=== PATIENT | female | born 1990 | race Caucasian/White ===

== ENCOUNTER 2021-02-17 15:32 | Outpatient (CLI) | payer BC, SELFPAY | END 2021-02-17 19:36 | disposition home or self-care (01) | LOC: ANHOBOP 16:35 → ANHLDR 16:36 | PROVIDERS: PCP Physician Assistant; Visit Provider Obstetrics & Gynecology | DX: O42.90 Premature rupture of membranes, unspecified as to length of time between rupture and onset of labor, unspecified weeks of gestation (principal); Z3A.00 Weeks of gestation of pregnancy not specified | CPT/HCPCS: 59025; 99199 ==

== ENCOUNTER 2021-02-25 03:04 | Observation (INO) | payer BC, SELFPAY ==
[2021-02-25 04:50] VITALS: BMI 28.1
--- NOTE | 2021-02-25 05:13 | OBADM ---
This patient, Maritza Osborne, admitted to the OB room Labor/Delivery/Recovery 106 for observation. Patient/family oriented to hospital policies and general routines including ID bracelet, bed and alarms, visiting hours, pain management, procedures, bathroom and other care routines, personal items, smoking policy, room service/diet, and visiting hours. Patient/Family are encouraged to report perceived risks to care and to ask questions if they do not understand what they are told or what they should do.
--- NOTE | 2021-02-25 12:29 | PM.OBTRLD ---
OB - Triage/Final Diagnosis Visit Information Comments/Additional reasons for admission: I have assessed the risk for this patient, Maritza Osborne, and determined that she would benefit from observation care. Final Diagnosis (1) False labor: Code(s): O47.9 - False labor, unspecified Status: Acute
== END 2021-02-25 05:25 | disposition home or self-care (01) ==
PROVIDERS: Admitting Provider Obstetrics & Gynecology; PCP Physician Assistant; Visit Provider Obstetrics & Gynecology
DX: O47.9 False labor, unspecified (principal); Z3A.00 Weeks of gestation of pregnancy not specified
CPT/HCPCS: G0378; G0379

== ENCOUNTER 2021-02-25 12:35 | Inpatient (IN) | payer BC, SELFPAY ==
[2021-02-25] VITALS (80 sets, daily range): BP systolic 86–133; BP diastolic 50–81; PULSE 76–139; RESP 14–20; TEMP 36.6–37.3; O2SAT 99–100; BMI 28.3
--- NOTE | 2021-02-25 12:35 | LDADM ---
This patient, Maritza Osborne, was admitted to Labor/Delivery/Recovery 106 on 02/25/21 at 12:35. Plans for labor, pain management and were discussed with patient. Patient/family oriented to hospital policies and general routines including ID bracelet, bed and alarms, visiting hours, pain management, procedures, bathroom and other care routines, personal items, smoking policy, room service/diet and guest tray routines, infant security routines, and visiting hours. Patient/Family are encouraged to report perceived risks to care and to ask questions if they do not understand what they are told or what they should do. See OBIX for further documentation.
[2021-02-25] MEDS: LACTATED RINGERS 1,000 ML 999 ML IV CONT (13:25)
[2021-02-25 13:40] LABS: Basophils Absolute Auto 0.1 K/mm3 (0.0-0.1); Basophils Percent Auto 0.4 % (0.2-1.2); Eosinophils Percent Auto 0.2 % (0-4.4); Hematocrit 36.5 % (37.0-47.0); Hemoglobin 12.2 g/dL (12.0-15.0); Immature Granulocyte Absolute 0.16 K/mm3 (0.00-0.031); Immature Granulocyte Percent A 0.9 % (0-0.5); Lymphocytes Absolute Auto 1.41 K/mm3 (0.9-3.2); Lymphocytes Percent Auto 8.4 % (18.3-44.2); Mean Corpuscular HGB Conc 33.4 g/dl (32-36); Mean Corpuscular Hemoglobin 29.2 pg (26-34); Mean Corpuscular Volume 87.3 fl (80-100); Mean Platelet Volume 9.3 fl (7.4-10.4); Neutrophils Absolute Auto 14.2 K/mm3 (1.3-6.7); Neutrophils Percent Auto 84.1 % (45.5-73.1); Platelet Count Result 243 k/mm3 (150-375); Red Blood Count 4.18 M/mm3 (4.2-5.4); Red Cell Distribution Width 12.7 % (11.5-14.5); White Blood Count 16.9 K/mm3 (4.5-10.0)
[2021-02-25] MEDS: LACTATED RINGERS 1,000 ML 125 ML IV CONT (14:26)
--- NOTE | 2021-02-25 14:52 | WPDANESEPP ---
Anes - Eval Pre Procedure Procedure: labor epidural Date/Time: 02/25/21 14:52 Surgeon: Hollis Preop Diagnosis: Pain During Labor Pre Op Diagnosis: labor Patient Data Age: 30 Gender: F Height: 1.64 m Weight: 76 kg Last Vital Signs Temp 98 F 02/25/21 13:31 Pulse 110 H 02/25/21 14:51 Resp 20 02/25/21 12:54 BP 113/68 02/25/21 14:51 Pulse Ox 100 02/25/21 14:44 Allergies Allergy/AdvReac Type Severity Reaction Status Date / Time dicyclomine [From Bentyl] Allergy Blister Verified 02/12/21 15:45 fexofenadine [From Mariangel] Allergy Blister Verified 02/12/21 15:45 ibuprofen [From Advil] Allergy Blister Verified 02/12/21 15:45 Sulfa (Sulfonamide Allergy Rash Verified 02/12/21 15:45 Antibiotics) sulfamethoxazole Allergy Rash Verified 02/12/21 15:45 [From Septra] trimethoprim [From Septra] Allergy Rash Verified 02/12/21 15:45 Home Medications Medication Instructions Recorded Confirmed Type Complete [place] cap PO 02/12/21 History docusate sodium [Colace] 100 mg PO DAILY 02/12/21 02/12/21 History escitalopram oxalate [Lexapro] 5 mg PO DAILY 02/12/21 02/12/21 History ferrous sulfate 325 mg PO BID 02/12/21 02/12/21 History prenat.vits,anisa,rlz-vnjb-acmxd 1 tablet PO DAILY 02/12/21 02/12/21 History Laboratory Tests 02/25/21 02/25/21 13:28 13:28 WBC 16.9 K/mm3 H K/mm3 (4.5-10.0) RBC 4.18 M/mm3 L M/mm3 (4.2-5.4) Hgb 12.2 g/dL g/dL (12.0-15.0) Hct 36.5 % L % (37.0-47.0) MCV 87.3 fl fl (80-100) MCH 29.2 pg pg (26-34) MCHC 33.4 g/dl g/dl (32-36) RDW 12.7 % % (11.5-14.5) Plt Count 243 k/mm3 k/mm3 (150-375) MPV 9.3 fl fl (7.4-10.4) Immature Gran % (Auto) 0.9 % H % (0-0.5) Neut % (Auto) 84.1 % H % (45.5-73.1) Lymph % (Auto) 8.4 % L % (18.3-44.2) [place] % (Auto) 6.0 % % (2.6-8.5) Eos % (Auto) 0.2 % % (0-4.4) Baso % (Auto) 0.4 % % (0.2-1.2) Lymph # (Auto) 1.41 K/mm3 K/mm3 (0.9-3.2) [place] # (Auto) 1.0 K/mm3 H K/mm3 (0.1-0.6) Eos # (Auto) 0.0 K/mm3 K/mm3 (0-0.3) Baso # (Auto) 0.1 K/mm3 K/mm3 (0.0-0.1) Abs Immat Gran (auto) 0.16 K/mm3 H K/mm3 (0.00-0.031) Absolute Neuts (auto) 14.2 K/mm3 H K/mm3 (1.3-6.7) Absolute Nucleated RBC 0.0 K/mm3 K/mm3 (0.0-0.012) Nucleated RBC % 0.0 % % (0.0-0.2) RPR Pending : gestational age (edc 03/10/21) HCG: positive Patient hx anesthesia problems: none Family hx anesthesia problems: none PMFSH Past Medical History Medical History Ga-Douglas syndrome 2012 Family History Family History (Updated 02/12/21 @ 15:52 by Crow Daniels RN) Mother Rheumatoid arthritis High cholesterol Anxiety Sibling Anxiety Social History Social History Substance use: never Spiritual care concerns: No Exam Day of Procedure 02/25/21 14:52
[2021-02-25] MEDS: OXYTOCIN 30 UNITS/NS 500 ML 30 UNITS/500 ML BAG 999 UNITS IV CONT (17:48)
--- NOTE | 2021-02-25 18:07 | WPDHPUPDATE1 ---
History and Physical Update Update Date/Time: 02/25/21 18:07 History and Physical has been reviewed, including an updated exam of the patient. There are NO changes in the patient's condition. Risks, benefits, and alternatives have been discussed and questions answered. Patient agrees to proceed with procedure.
--- NOTE | 2021-02-25 18:07 | WPDOBADMIT ---
Obstetrics - Admit Note Admission Note: record reviewed. No pertinent additions to the history and/or any subsequent changes in the physical findings that are not consistent with the expected course of the were found. Additions to the history and/or subsequent changes in the physical findings follow. None.
--- NOTE | 2021-02-25 18:08 | PM.OBPRVD ---
OB - Delivery Note Procedure Route of delivery: Episiotomy description: None Laceration Description: Vaginal - 3rd Degree Delivery repair: vicryl and chromic Specimen: No Quantitative Blood Loss (ml): 500 Anesthesia type: Epidural Disposition: floor Narrative: Patient prepped and draped usual sterile manner for this procedure. Maternal expulsive efforts readily delivered vertex over intact perineum on the rest of baby was delivered without difficulty. Cord was clamped and cut placenta delivered and uterus was well contracted. Cervix vagina vulva were inspected with partial third-degree laceration noted the rectal sphincter was approximated using 3 separate 0 Vicryl figure of 8 sutures. Vaginal mucosa was then approximated using 2 0 chromic in a running interlocking manner deep tissue was also approximated and perineal skin was approximated using 2 0 chromic. Repair was intact without any evidence of hematoma. Uterus was well contracted and minimal bleeding. At this point the procedure was considered terminated. Baby Weeks of gestation at delivery: 38 Infant gender: Male Weight (pounds): 7 Weight (ounces): 3 score one minute: 8 score five minutes: 9
[2021-02-25] MEDS: OXYTOCIN 30 UNITS/NS 500 ML 30 UNITS/500 ML BAG 125 UNITS IV CONT (18:24)
[2021-02-25] MEDS: WITCH HAZEL 40 PADS 1 PAD TOPICAL (20:07)
[2021-02-25] MEDS: ACETAMINOPHEN 325 MG TABLET 650 MG PO (20:08)
[2021-02-25] MEDS: BENZOCAINE 20% AER SPR (*SP) 56 GM CAN 1 SPRAY TOPICAL (20:08)
[2021-02-25] MEDS: ESCITALOPRAM OXALATE 5 MG TABLET PO (20:54)
[2021-02-26 05:00] VITALS: BP 112/59; PULSE 91; RESP 13; TEMP 36.9; O2SAT 100
[2021-02-26] MEDS: ACETAMINOPHEN 325 MG TABLET 650 MG PO (05:37)
[2021-02-26 05:51] LABS: Hematocrit 31.4 % (37.0-47.0); Hemoglobin 10.1 g/dL (12.0-15.0)
--- NOTE | 2021-02-26 07:17 | P.PNOB_ITS ---
OB - PN: Subj Subjective Date/time seen: 02/26/21 07:17 ambulating voiding without difficulty. Feeling some pressure but overall pain is well controlled. OB - PN: Obj Data Labs CBC & Chem 7: 02/26/21 05:36 Labs: Laboratory Results - last 24 hr 02/25/21 02/25/21 02/26/21 13:28 13:28 05:36 WBC 16.9 H RBC 4.18 L Hgb 12.2 10.1 L Hct 36.5 L 31.4 L MCV 87.3 MCH 29.2 MCHC 33.4 RDW 12.7 Plt Count 243 MPV 9.3 Immature Gran % (Auto) 0.9 H Neut % (Auto) 84.1 H Lymph % (Auto) 8.4 L [place] % (Auto) 6.0 Eos % (Auto) 0.2 Baso % (Auto) 0.4 Lymph # (Auto) 1.41 [place] # (Auto) 1.0 H Eos # (Auto) 0.0 Baso # (Auto) 0.1 Abs Immat Gran (auto) 0.16 H Absolute Neuts (auto) 14.2 H Absolute Nucleated RBC 0.0 Nucleated RBC % 0.0 Blood Type O Positive Antibody Screen Negative OB - PN A/P Time Spent With Patient Time: Total time spent is greater than 50% in coordination of care (as documented) at patient's floor/unit and/or counseling patient:
--- NOTE | 2021-02-26 07:28 | P.DS_ITS ---
DS: Admitting Diagnosis Admitting Diagnosis Admitting Diagnosis: pergnancy OB - DS: Summary OB Procedures : None OB Procedures Intrapartum: Spontaneous Vag Delivery OB Procedures: : None Time Spent with Patient Time attestation: Total time spent providing and/or coordinating discharge services: DS: Data Data Completed and Pending Labs on day of discharge: Labs from last 24 hours 02/26/21 02/25/21 02/25/21 05:36 13:28 13:28 WBC RBC Hgb 10.1 L Hct 31.4 L MCV MCH MCHC RDW Plt Count MPV Immature Gran % (Auto) Neut % (Auto) Lymph % (Auto) [place] % (Auto) Eos % (Auto) Baso % (Auto) Lymph # (Auto) [place] # (Auto) Eos # (Auto) Baso # (Auto) Abs Immat Gran (auto) Absolute Neuts (auto) Absolute Nucleated RBC Nucleated RBC % RPR Pending Blood Type O Positive Antibody Screen Negative 02/25/21 13:28 WBC 16.9 H RBC 4.18 L Hgb 12.2 Hct 36.5 L MCV 87.3 MCH 29.2 MCHC 33.4 RDW 12.7 Plt Count 243 MPV 9.3 Immature Gran % (Auto) 0.9 H Neut % (Auto) 84.1 H Lymph % (Auto) 8.4 L [place] % (Auto) 6.0 Eos % (Auto) 0.2 Baso % (Auto) 0.4 Lymph # (Auto) 1.41 [place] # (Auto) 1.0 H Eos # (Auto) 0.0 Baso # (Auto) 0.1 Abs Immat Gran (auto) 0.16 H Absolute Neuts (auto) 14.2 H Absolute Nucleated RBC 0.0 Nucleated RBC % 0.0 RPR Blood Type Antibody Screen Discharge Plan Discharge Discharging Clinician: Viktor Shafer Anticipated Discharge Date/Time: 02/27/21 10:29 Patient Disposition: Home, Self-Care Activity: as tolerated Diet: as tolerated Patient Instructions: Antibiotic Form Stand Alone Forms: General Discharge Information Follow-up/Referrals: Viktor Shafer MD [Physician] - 3 Weeks Discharge Medications: New hydrocodone-acetaminophen 5-325 mg tablet 1 tablet PO Q6H Qty: 20 RF: 0 Continued docusate sodium [Colace] 100 mg Capsule 100 mg PO DAILY RF: 0 ferrous sulfate 325 mg (65 mg iron) Tablet,Delayed Release (Dr/Ec) 325 mg PO BID RF: 0 prenat.vits,anisa,lph-[id number]-mgmgv Tablet 1 tablet PO DAILY RF: 0 escitalopram oxalate [Lexapro] 5 mg Tablet 5 mg PO HS RF: 0 Complete [place] 700-1,500 mg-mg Capsule 1 cap PO DAILY RF: 0 Date of admission: 02/25/21 12:35 Primary Care Provider: Gaston,Brianna Admitting Provider: Viktor Shafer Attending physician on admission: Viktor Shafer Condition: Stable
[2021-02-26 09:30] VITALS: PULSE 97; RESP 18; O2SAT 100
[2021-02-26] MEDS: HYDROcodone/acetaminophen (*CRX) 10-325 MG TABLET 1 TAB PO (09:34)
[2021-02-26] MEDS: MULTIVIT/MIN/PREN/FOL AC/IRON TABLET 1 TAB PO (09:35)
[2021-02-26] MEDS: DOCUSATE SODIUM 100 MG CAPSULE PO ×2 (09:35→17:20)
[2021-02-26 09:40] VITALS: BP 122/65; PULSE 97; RESP 18; TEMP 36.7; O2SAT 100
[2021-02-26 12:56] LABS: Rapid Plasma Reagin Non-Reactive (NonReactive)
[2021-02-26 17:15] VITALS: PULSE 97; RESP 18; O2SAT 100
[2021-02-26] MEDS: IBUPROFEN 600 MG TABLET PO (17:20)
[2021-02-26] MEDS: HYDROcodone/acetaminophen (*CRX) 5-325 MG TABLET 1 TAB PO (17:20)
[2021-02-26 19:45] VITALS: BP 114/70; PULSE 73; RESP 14; TEMP 36.7; O2SAT 99
[2021-02-27] MEDS: HYDROcodone/acetaminophen (*CRX) 5-325 MG TABLET 1 TAB PO (05:59)
[2021-02-27] MEDS: IBUPROFEN 600 MG TABLET PO (06:00)
[2021-02-27 08:00] VITALS: BP 112/64; PULSE 86; RESP 20; TEMP 36.4; O2SAT 100
[2021-02-27] MEDS: MULTIVIT/MIN/PREN/FOL AC/IRON TABLET 1 TAB PO (09:59)
[2021-02-27] MEDS: DOCUSATE SODIUM 100 MG CAPSULE PO (09:59)
[2021-02-27] MEDS: TETANUS,DIPHTHERIA,AC PERTUSSIS ADULT (0.5 ML) BOOSTRIX IM (13:05)
[2021-03-02 07:53] VITALS: BP 143/75; PULSE 60; RESP 16; TEMP 36.8; O2SAT 100
--- NOTE | 2021-03-02 15:43 | P.DS_ITS ---
DS: Admitting Diagnosis Admitting Diagnosis Admitting Diagnosis: OB - DS: Summary OB Procedures : None OB Procedures Intrapartum: Spontaneous Vag Delivery OB Procedures: : None Time Spent with Patient Time attestation: Total time spent providing and/or coordinating discharge services: Discharge Plan Discharge Discharging Clinician: Viktor Shafer Anticipated Discharge Date/Time: 02/27/21 10:29 Patient Disposition: Home, Self-Care Activity: as tolerated Diet: as tolerated Discharge Instructions: Education: Mom and Baby Guide Given to: Mother Follow-Up: Call your delivering provider's office for an appointment to be seen in: 3 weeks Mom and baby should come to the [facility] for the follow-up appointment. Appointment Date/Time: March 02, 2021 at 8:00 am What to expect at your follow-up visit: Physical Assessment Call [phone] if you are unable to keep your appointment time. BREAST CARE: * Wear a snug supportive bra. * For engorgement discomfort: Bottle Feeding: * May apply ice packs PERINEAL CARE: * Until bleeding stops, use your nicci bottle after urinating * Change your pad frequently throughout the day * You may take sitz baths several times a day (fill your bathtub with warm water and soak for 20 minutes.) Do NOT bathe in the water * No tub baths until seen by your physician - You may shower ACTIVITY: * Rest as much as possible. * Do not exercise or lift anything heavier than your baby (such as laundry or other children.) * Avoid stairs or driving as much as possible. * Do not put anything into the vagina. No douching, tampons, or sexual activity until seen by physician. NOTIFY PHYSICIAN IF YOU HAVE ANY QUESTIONS OR IF ANY OF THE FOLLOWING SYMPTOMS OCCUR: * If your stitches become red, swollen, or more painful than what you have experienced in the hospital. * If your vaginal bleeding becomes foul smelling. * If your vaginal bleeding becomes more heavy than a period or if your bleeding changes from pink to bright red. However, you may pass an occasional walnut- sized clot once or twice for the first week . * If you experience a sharp, shooting pain in you calves. * If you discover a hard, reddened area on your breast or if you experience flu- like symptoms. DIET: * Eat regular, well-balanced meals. * Drink plenty of fluids daily. If , drink to thirst. Patient Instructions: Antibiotic Form Stand Alone Forms: General Discharge Information Follow-up/Referrals: Viktor Shafer MD [Physician] - 3 Weeks Discharge Medications: New hydrocodone-acetaminophen 5-325 mg tablet 1 tablet PO Q6H Qty: 20 RF: 0 Continued docusate sodium [Colace] 100 mg Capsule 100 mg PO DAILY RF: 0 ferrous sulfate 325 mg (65 mg iron) Tablet,Delayed Release (Dr/Ec) 325 mg PO BID RF: 0 prenat.vits,anisa,qvy-hadw-thicl Tablet 1 tablet PO DAILY RF: 0 escitalopram oxalate [Lexapro] 5 mg Tablet 5 mg PO HS RF: 0 Complete [place] 700-1,500 mg-mg Capsule 1 cap PO DAILY RF: 0 Date of admission: 02/25/21 12:35 Primary Care Provider: Gaston,Brianna Admitting Provider: Viktor Shafer Attending physician on admission: Viktor Shafer Condition: Stable
== END 2021-02-27 14:32 | disposition home or self-care (01) | DRG 768 ==
LOC: ANHLDR 13:18 → ANHOB2 21:40
PROVIDERS: Admitting Provider Obstetrics & Gynecology; PCP Physician Assistant; Visit Provider Obstetrics & Gynecology
DX: O70.20 Third degree perineal laceration during delivery, unspecified (principal); Z37.0 Single live birth; Z3A.38 38 weeks gestation of pregnancy
CPT/HCPCS: 36415; 85014; 85018; 85025; 86592; 86850; 86900; 86901; 90715; A9270; J2590; J2795; J7120

== ENCOUNTER → 2022-12-09 08:40 | Outpatient (CLI) | payer BC, SELFPAY ==
--- NOTE | ~2022-12-09 | MMUS_ITS ---
EXAMINATION: MM diagnostic moisés RT w bay, US breast RT complete HISTORY: Mastodynia TECHNIQUE: ML, MLO and CC 3-D tomosynthesis images of the right breast were performed and synthetic 2 -D images were generated. CAD analysis was submitted and interpreted. High resolution complete right breast ultrasound examination including all 4 quadrants and subareolar area was performed. COMPARISON: None BREAST PARENCHYMAL COMPOSITION: The breasts are heterogeneously dense, which may obscure small masses . FINDINGS: MAMMOGRAPHIC FINDINGS: No suspicious mass or architectural distortion, malignant calcification, skin thickening or retractio n is detected. ULTRASOUND: 3:00 3 cm from nipple: Parallel circumscribed hypoechoic approximately 4 x 8 x 8 mm lesion without in ternal vascularity. Mild posterior shadowing is noted. Shadowing. The margins are mildly irregular ul trasound-guided biopsy is recommended. 9:00 6 cm from nipple: Parallel circumscribed hypoechoic 4 x 3.6 x 6 mm lesion without internal vascu larity or posterior shadowing, likely benign. IMPRESSION: 1. Mildly irregular mildly posteriorly shadowing approximately 4 x 8 mm hypoechoic solid lesion of ri ght breast at 3:00 3 cm from nipple 2. Ultrasound-guided biopsy of right breast 3:00 lesion is recommended BI-RADS category 4, suspicious findings. Dr. Rocha telephoned the report and ultrasound-guided biopsy recommendation of right breast 3:00 lesio n on 12/01/2022 at 1009 hours to November, [employer] Reviewed, dictated and finalized at location A. IMPRESSION: 1. Mildly irregular mildly posteriorly shadowing approximately 4 x 8 mm hypoech oic solid lesion of right breast at 3:00 3 cm from nipple 2. Ultrasound-guided biopsy of right breast 3:00 lesion is recommended BI-RADS category 4, suspicious findings. Dr. Rocha telephoned the report and ultrasound-guided biopsy recommendation of r ight breast 3:00 lesion on 12/01/2022 at 1009 hours to November, [employer] IMPRESSION: 1. Mildly irregular mildly posteriorly shadowing approximately 4 x 8 mm hypoech oic solid lesion of right breast at 3:00 3 cm from nipple 2. Ultrasound-guided biopsy of right breast 3:00 lesion is recommended BI-RADS category 4, suspicious findings. Dr. Rocha telephoned the report and ultrasound-guided biopsy recommendation of r ight breast 3:00 lesion on 12/01/2022 at 1009 hours to Lexi, [employer]
== END ==
PROVIDERS: PCP Obstetrics & Gynecology; Visit Provider Obstetrics & Gynecology
DX: N64.4 Mastodynia (principal); R92.8 Other abnormal and inconclusive findings on diagnostic imaging of breast
CPT/HCPCS: 76641; 77061; 77065; G0279

== ENCOUNTER → 2023-01-04 12:03 | Outpatient (CLI) | payer BC, SELFPAY ==
--- NOTE | ~2023-01-04 | XR_ITS ---
EXAMINATION: XR chest 2V 01/04/2023 12:38 INDICATION: Localized enlarged lymph nodes. PROCEDURE: 2 view chest COMPARISON: No prior studies for comparison. FINDINGS: The lungs are clear. The cardiomediastinal silhouette is within normal limits. There are no pleural effusions. There is no pneumothorax suspected. IMPRESSION: 1: NO ACUTE CARDIOPULMONARY DISEASE. Reviewed, dictated and finalized at location B.
== END ==
PROVIDERS: PCP Physician Assistant; Visit Provider Physician Assistant
DX: R10.12 Left upper quadrant pain (principal); R59.0 Localized enlarged lymph nodes
CPT/HCPCS: 71046

== ENCOUNTER → 2023-01-06 08:22 | Outpatient (CLI) | payer BC, SELFPAY ==
--- NOTE | ~2023-01-06 | US_ITS ---
US abdomen complete EXAMINATION: US Abdomen Complete INDICATION: Benign neoplasm of connective tissue. PROCEDURE: Realtime High Resolution abdomen ultrasound. COMPARISON: No prior studies for comparison. FINDINGS: Gallbladder within normal limits. No gallstones, pericholecystic fluid, gallbladder wall t hickening or biliary dilatation. Common bile duct measures 4 mm. There is a slightly hyperechoic oval liver mass involving the left hepatic lobe which expands the cap sebastian. This mass measures 4.3 x 4.7 x 3.2 cm with marginal vascularity. No significant posterior featu res. Pancreas within normal limits. Pancreatic tail is obscured by bowel gas. Spleen is unremarkeab le. Renal echotexture is within normal limits bilaterally without hydronephrosis, contour deforming m ass or renal stone. There is a 1 cm right renal cyst. Right kidney measures 9.1 cm. Left kidney measu res 11.5 cm. Visualized aspects of the aorta and IVC are within normal limits. Portal vein is patent. No sonograph ic Alexander's sign indicated by the technologist. IMPRESSION: 1: Oval hyperechoic mass of the left hepatic lobe measuring up to 4.7 cm. Cannot exclude metastatic d isease or primary hepatocellular carcinoma. Recommend correlation with CT or MRI without and with con trast. Reviewed, dictated and finalized at location B. IMPRESSION: 1: Oval hyperechoic mass of the left hepatic lobe measuring up to 4.7 cm. Canno t exclude metastatic disease or primary hepatocellular carcinoma. Recommend cor relation with CT or MRI without and with contrast.
== END ==
PROVIDERS: PCP Physician Assistant; Visit Provider Physician Assistant
DX: R10.12 Left upper quadrant pain (principal); R59.0 Localized enlarged lymph nodes
CPT/HCPCS: 76700

== ENCOUNTER → 2023-01-16 10:15 | Outpatient (CLI) | payer BC, SELFPAY ==
--- NOTE | ~2023-01-16 | CT_ITS ---
CT of the Abdomen: Indication: Liver mass Technique: 2.5 mm axial scans were obtained through the abdomen prior to and following intravenous a dministration of 100 cc of Omnipaque 350. Dose reduction technique was used on this scan by utilizing automated exposure control and iterative reconstruction technique. The dose-length product (DLP) was 775.13 mGy-cm. Findings: Scans through the lung bases are unremarkable. There is a 3.8 x 2.8 x 3.8 cm mass in the inferior left hepatic lobe, hypodense on precontrast images . There is suggestion of minimal nodular peripheral enhancement on the arterial and portal phase imag es, but the bulk of the lesion is nonenhancing. The spleen, pancreas, gallbladder, adrenals and kidne ys are within normal limits. No evidence of aortic aneurysm. No lymphadenopathy. Visualized bowel loops are unremarkable.. No ascites. Impression: 3.8 x 2.8 x 3.70 mass in the inferior left hepatic lobe, as detailed above. Findings are probably mos t suggestive of hemangioma, though the extent of peripheral enhancement is minimal periportal venous phase imaging. Given the relative atypical appearance, recommend further confirmation with nuclear me dicine red blood cell scan or pre and postcontrast hepatic MR, as alternative lesions cannot be exclu ded. Reviewed, dictated and finalized at location . Impression: 3.8 x 2.8 x 3.70 mass in the inferior left hepatic lobe, as detailed above. Fin dings are probably most suggestive of hemangioma, though the extent of peripher al enhancement is minimal periportal venous phase imaging. Given the relative a typical appearance, recommend further confirmation with nuclear medicine red bl ood cell scan or pre and postcontrast hepatic MR, as alternative lesions cannot be excluded.
== END ==
PROVIDERS: PCP Physician Assistant; Visit Provider Physician Assistant
DX: R16.0 Hepatomegaly, not elsewhere classified (principal)
CPT/HCPCS: 74170; Q9967

== ENCOUNTER → 2023-02-01 13:51 | Outpatient (CLI) | payer BC, SELFPAY ==
--- NOTE | ~2023-02-01 | MR_ITS ---
EXAMINATION: MR abdomen wo/w con DATE: 02/01/2023 15:24 INDICATION: Liver mass TECHNIQUE: Magnetic resonance imaging (MRI) of the abdomen was performed without and with 14 mL Multi renee intravenous contrast. Sequences included coronal T2-weighted SS-FSE, coronal and axial FS 2D-F IESTA, axial STIR FSE, axial T2-weighted SS-FSE, axial T2-weighted FS SS-FSE, axial diffusion-weighte d SE, axial dual-echo T1-weighted FSPGR, and axial and coronal T1-weighted LAVA. Postcontrast axial T 1-weighted LAVA images were obtained in a time course. Postcontrast coronal T1-weighted LAVA images w ere obtained. COMPARISON: CT abdomen dated 01/16/2023 FINDINGS: Evaluation mildly limited by respiratory motion artifact most prominent on the LAVA sequences includi ng the postcontrast imaging. Heart size is normal. No pericardial or pleural effusion. 3.8 x 2.8 cm T 2 hyperintense mass with lobular margins in segment 2b of the liver. On the 5 and 10 minute delayed i mages the central portion of the lesion remains unenhanced. There is some peripheral puddling of cont rast which appears minimally increased since the earlier phase of contrast. Differential would be mos t consistent with a slowly filling cavernous hemangioma. Gallbladder, spleen, pancreas, bilateral adr enal glands and kidneys are normal. Visualized portions of the bowels are normal. Mild lumbar levocur vature. Normal bone marrow signal throughout. IMPRESSION: 1. 3.8 cm mass in segment 2B of the liver with signal and enhancement characteristics most consistent with a cavernous hemangioma. Reviewed, dictated and finalized at location A. IMPRESSION: 1. 3.8 cm mass in segment 2B of the liver with signal and enhancement character istics most consistent with a cavernous hemangioma.
== END ==
PROVIDERS: PCP Physician Assistant; Visit Provider Physician Assistant
DX: R16.0 Hepatomegaly, not elsewhere classified (principal)
CPT/HCPCS: 74183; A9577

== ENCOUNTER 2024-11-26 13:59 | Outpatient (CLI) | payer BC, SELFPAY ==
--- NOTE | ~2024-11-26 | MR_ITS ---
MRI of the abdomen: Clinical indication: Cavernous hemangioma of liver. Technique: Coronal SSFSE ARC, WATER:coronal LAVA-FLEX, Coronal 2D FIESTA FatSat, Axial SSFSE BH ARC, Axial 3D DualEcho BH, Axial SSFSE-IR, Axial DWI b=500, Axial 2D FIESTA FatSat, pre and dynamic postco ntrast Axial LAVA ARC, postcontrast Coronal In and Opposed phase LAVA FLEX . Following intravenous ad ministration of 14 cc MultiHance gadolinium, T1-weighted fat-sat imaging was performed in the axial a nd coronal planes. COMPARISON: 02/01/2023 Findings: Gallbladder unremarkable. The common bile duct is normal in course and caliber. No filling defects are seen within the CBD. No evidence of intrahepatic biliary ductal dilatation. The pancreati c duct is normal in size. Stable 3.6 cm T2 hyperintense mass in the left hepatic lobe with probable discontinuous peripheral en hancement with progressive fill in, compatible with hemangioma. Spleen, pancreas, adrenals, kidneys a ppear normal. The aorta and the paraaortic regions appear normal. Impression: Stable left hepatic lobe hemangioma. Reviewed, dictated and finalized at [facility]. Impression: Stable left hepatic lobe hemangioma.
== END 2024-11-26 14:00 | disposition home or self-care (01) ==
LOC: MICIMG 14:00
PROVIDERS: PCP Physician Assistant; Visit Provider Physician Assistant
DX: D18.03 Hemangioma of intra-abdominal structures (principal)
CPT/HCPCS: 74183; A9577